=== PATIENT | female | born 1995 | race Caucasian/White ===

== ENCOUNTER 2018-10-17 14:56 | Inpatient (IN) | payer OTHER ==
[~2018-10-17] VITALS: Ht 157.5 cm; Wt 68.9 kg
[2018-10-17] VITALS (7 sets, daily range): BP systolic 108–118; BP diastolic 62–72
[2018-10-17 16:00] LABS: HEMATOCRIT 36.9 % (36.0-47.0); HEMOGLOBIN 11.9 g/dl (12.0-15.5); MEAN CORPUSCULAR HGB CONC 32.2 g/dl (32.0-36.5); MEAN CORPUSCULAR VOLUME 86.8 fl (80.0-96.0); PLATELET COUNT, AUTOMATED 272 10^3/uL (150-450); RED BLOOD COUNT 4.25 10^6/uL (4.00-5.40); WHITE BLOOD COUNT 8.9 10^3/uL (4.0-10.0)
[2018-10-17] MEDS ORDERED: miSOPROStol 50 MCG 1/2 TAB (S0191) PO ONE (16:00)
--- NOTE | 2018-10-17 16:18 | NUR ---
Obstetrical History & Physical Date of Admission Oct 17, 2018 at 20:06 History of Present Illness Mimi is a 23 y/o G1 at 41+0 weeks via LMP of 03 JAN 2018 and c/w TVUS at 8+2 weeks who presents to L&D for planned late term IOL. She denies any vaginal bleeding, ctx, or leakage of fluid. She endorses excellent movement. is uncomplicated. Chief Complaint: Planned late-term IOL Information Provided By: Patient Age: 23 : 1 Term: 0 Pre-term: 0 Abortions: 0 Livin Care Care: Good Care Dating Final EDC: October 10, 2018 Final EDC for Daily Update: October 10, 2018 Final EDC by: LMP (LMP 03 JAN 2018) LMP: Jan 03, 2018 1st Trimester Date: Mar 02, 2018 (8+2 week US on [id number] c/w LMP dating. 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 ABDOMEN: Gravid and non-tender to touch. FETUS: Is vertex (VTX) by sterile vaginal examination (SVE) EXTREMITIES: No edema. Laboratory Data Urine Culture: No Growth Pertinent Laboratoy Data Blood Type: A+ RBC Antibody Screen: Negative HIV: Negative Hepatitis B: Negative Hepatitis C: Unknown Rapid Plasma Reagin: Nonreactive Rubella: Immune Varicella: Non-Immune Chlamydia/Gonorrhea: Negative Group B Streptococcus: Negative Quad Screen Test: Negative Cystic Fibrosis: Unknown Glucose Tolerance Test: 87 Anatomy Ultrasound Placenta Location: Posterior Normal Anatomy: Yes, small venous lakes present Placenta Previa: No Vaginal Examination Dilation: FT Effacement: 20% Station: -4 Cervical Consistency: moderate Cervical Position: posterior Presentation: cephalic presentation via Jean Carlos's and SCE Position: vertex (occiput) Assessment Heart Rate (FHR): 140 Variability: Moderate Accelerations: Positive Decelerations: None Tocometer Contractions: irregular u/a Frequency: n/a Strength: n/a Assessment/Plan Assessment 23 yo G1 at 41+0 via L/1TUS admission for late-term IOL. Uncomplicated . RNST. GBS NEG. Plan Admit to L&D for IOL, will initiate with misoprostil for cervical ripening Apply IV fluids. GBS negative. Patient may epidural if desired. Anticipate .
--- NOTE | 2018-10-17 20:02 | IPNPDOC ---
Obstetrical Progress Note Date of Service Oct 17, 2018 Subjective Pt reports slight cramping with CTXNs. SVE unchanged FHT CAT1 [place] Q 2-3min Plan: Miso 50mcg PO x 1 now Objective Vital Signs Date Time Temp Pulse Resp B/P (MAP) Pulse Ox O2 Delivery O2 Flow Rate FiO2 10/17/18 19:14 97.4 94 116/66 (83) Assessment Heart Rate (FHR): 130 Variability: Moderate Accelerations: Positive Decelerations: None Heart Rate Tracing: Category I Tocometer Contractions: Yes Frequency: irregular, every 2-5 min. Strength: palpated as mild Sterile Vaginal Examination Dilation: Fingertip Effacement (%): 30% Station: Other (-4) Cervical Consistency: Firm Cervical Position: Posterior Postion/Presentation: Cephalic presentation Assessment and Plan Status: Reassuring RISHABH REBOLLEDO MD Oct 17, 2018 20:02
[2018-10-17] MEDS: miSOPROStol 50 MCG 1/2 TAB (S0191) PO SCH (20:16)
--- NOTE | 2018-10-17 23:59 | IPNPDOC ---
Obstetrical Progress Note Date of Service Oct 17, 2018 Subjective Pt reports CTXNs are getting stronger. Considering pain meds at this time. Objective Vital Signs Date Time Temp Pulse Resp B/P (MAP) Pulse Ox O2 Delivery O2 Flow Rate FiO2 10/17/18 22:34 93 108/62 (77) 10/17/18 19:14 97.4 Assessment Heart Rate (FHR): 130 Variability: Moderate Accelerations: Positive Decelerations: None Heart Rate Tracing: Category I Tocometer Contractions: Yes Frequency: irregular, every 2-5 min. Duration: less than 60 seconds Strength: palpated as mild Sterile Vaginal Examination Dilation: 1cm Effacement (%): 50% Station: -3 Cervical Consistency: Medium Cervical Position: Posterior Postion/Presentation: Cephalic presentation Assessment and Plan Status: Reassuring Anticipate: Vaginal Delivery Additional Comments Plan: Continue with current plan. Miso 50mcg PO #3 to be given RISHABH REBOLLEDO MD Oct 17, 2018 23:59
[2018-10-18] VITALS (32 sets, daily range): BP systolic 77–135; BP diastolic 52–92
[2018-10-18] MEDS ORDERED: ACETAMINOPHEN 325 MG TAB PO ONE
[2018-10-18] MEDS ORDERED: PROMETHAZINE INJ 25 MG/ML VIAL (J2550) IM ONE
[2018-10-18] MEDS ORDERED: BUTORPHANOL 2 MG/ML INJ (J0595) IV ONE
[2018-10-18] MEDS: miSOPROStol 50 MCG 1/2 TAB (S0191) PO SCH (00:15)
[2018-10-18] MEDS ORDERED: FENTANYL 2MCG/ML ROPIVACAINE 0.2% IN 0.9% NACL 100ML IVBAG As Ordered ONE (04:45)
[2018-10-18] MEDS ORDERED: EPIDURAL COMMENT XX SCH (05:30)
[2018-10-18] MEDS ORDERED: ONDANSETRON 4MG/2ML VIAL (J2405) IV PRN ×2 (05:30→23:57)
[2018-10-18] MEDS: FENTANYL/ROPIVACAINE/NACL BAG 100 ML EPIDURAL SCH ×2 (05:30→13:08)
[2018-10-18] MEDS ORDERED: LACTATED RINGER'S 1000 ML IV PRN (05:30)
[2018-10-18] MEDS ORDERED: EPIDURAL/PCA KEYS XX PRN (05:30)
[2018-10-18] MEDS ORDERED: REFRIGERATOR IV KEYS XX PRN (05:30)
[2018-10-18] MEDS ORDERED: NALOXONE INJ 0.4 MG/1 ML VIAL (J2310) IV PRN ×3 (05:30→23:57)
[2018-10-18] MEDS ORDERED: diphenhydrAMINE INJ 50MG/ML VIAL (J1200) IV PRN ×2 (05:30→23:57)
[2018-10-18] MEDS ORDERED: ePHEDrine SULFATE 25 MG/5 ML(5MG/ML) SYRINGE IV PRN (05:30)
--- NOTE | 2018-10-18 06:31 | IPNPDOC ---
Obstetrical Progress Note Date of Service Oct 18, 2018 Subjective Pt very uncomfortable and requested an epidural. She is now s/p epidural and very comfortable. Objective Vital Signs Date Time Temp Pulse Resp B/P (MAP) Pulse Ox O2 Delivery O2 Flow Rate FiO2 10/18/18 05:55 75 111/72 (85) 10/18/18 00:56 97.8 10/18/18 00:55 18 Assessment Heart Rate (FHR): 130 Variability: Moderate Accelerations: Positive Decelerations: None Heart Rate Tracing: Category I Tocometer Contractions: Yes Frequency: every 2-5 min. Duration: less than 60 seconds Strength: palpated as moderate Sterile Vaginal Examination Dilation: 3 cm Effacement (%): 80% Station: -3 Cervical Consistency: Medium Cervical Position: Anterior Assessment and Plan Anticipate: Vaginal Delivery Additional Comments Expectant management at this time. Plan for recheck and assess need for augmentation. RISHABH REBOLLEDO MD Oct 18, 2018 06:31
[2018-10-18] MEDS ORDERED: LR 1,000 ML IV SCH (10:57)
[2018-10-18] MEDS ORDERED: OXYTOCIN DRIP 30 UNITS in APPROPRIATE DILUENT 1 EA IV SCH (11:00)
--- NOTE | 2018-10-18 11:03 | IPNPDOC ---
Obstetrical Progress Note Date of Service Oct 18, 2018 Subjective 23yo at 41+1wks admitted on the 17 of October for PDIOL. Assumed care of this pt this AM. Pt now s/p epidural and comfortable and sleeping on and off. Pt has received 3x cytotec, last dose ~0100 this AM. VE at 0630 this am was 3/80/-3 by off-going OB provider. Pt denies any concerns at this time. Her spouse remains at the bedside. O: VSS, BP stable VE at 1050: 3.5/80/-3, midline, soft, head well applied Bloody show present FHR 130s, moderate variability, + accels, no decels CTX: irregular at 2-6minutes apart A: Early labor via IOL, Category I FHT, Stable P: CEFM x2 Monitor maternal/ status Start pitocin per protocol Consider AROM at next exam Consult with OB if indicated Anticipate Objective Vital Signs Date Time Temp Pulse Resp B/P (MAP) Pulse Ox O2 Delivery O2 Flow Rate FiO2 10/18/18 07:00 83 94/60 (71) 10/18/18 00:56 97.8 10/18/18 00:55 18 BASILIO MARADIAGA CNM Oct 18, 2018 11:03
--- NOTE | 2018-10-18 16:56 | IPNPDOC ---
Obstetrical Progress Note Date of Service Oct 18, 2018 Subjective 23yo at 41+1wks, continuing PDIOL, on pitocin at this time, comfortable with epidural in place. Pt has no concerns; spouse and mother of patient at bedside. O: VSS, afebrile VE at 1600: 6/80/-2, anterior, soft Bloody show present AROM with scant, clear fluid FHR 135, moderate variability, + no accels at time of note, early decels present CTX: q1.5-3 Pitocin running at 8mu/min, reduced to 4mu/min at time of AROM A: Active labor, Category I FHT, Stable P: CEFM x2 Monitor maternal/ status Continue pitocin titration per protocol Close monitor of maternal temp Consult with OB if indicated Anticipate Objective BASILIO MARADIAGA CNM Oct 18, 2018 16:56
--- NOTE | 2018-10-18 19:31 | IPNPDOC ---
Obstetrical Progress Note Date of Service Oct 18, 2018 Subjective 23yo at 41+1wks, IOL, on 4mu/min of pitocin at this time. Comfortable with epidural in place. O: VSS, afebrile VE at 1922: C/+1 Bloody show present, clear fluid on chux FHR 135, moderate variability, + accels, intermittent late and variable decelerations noted with ctx (RN has provided resuscitative interventions) CTX: q1.5-3 A: Active labor/Stage II, Category II FHT with ongoing interventions P: CEFM x2 Monitor maternal/ status Start pushing at this time Consult with OB if indicated Anticipate Objective BASILIO MARADIAGA CNM Oct 18, 2018 19:31
[2018-10-18] MEDS ORDERED: BICITRA 30ML SOLN UDC As Ordered ONE (23:14)
[2018-10-18] MEDS ORDERED: ceFAZolin 2 GM/D5W 50 ML IV BAG (J0690 PER 500MG) As Ordered ONE (23:14)
[2018-10-18] MEDS ORDERED: BICITRA 30ML SOLN UDC PO ONE (23:15)
[2018-10-18] MEDS ORDERED: AZITHROMYCIN INJ 500 MG, VIAL MATE ADAPTER 1 EACH in D5W 250 ML IV ONE (23:15)
[2018-10-18] MEDS ORDERED: KETOROLAC 60 MG/2 ML VIAL (J1885) As Ordered ONE (23:20)
[2018-10-18] MEDS ORDERED: ACETAMINOPHEN 1000MG 100ML IV BTL (OFIRMEV) (J0131 PER 10MG) As Ordered ONE (23:20)
[2018-10-18] MEDS ORDERED: fentaNYL 100 MCG/2 ML INJECTION (J3010) As Ordered ONE (23:20)
[2018-10-18] MEDS ORDERED: OXYTOCIN INJ 10 UNITS/ML VIAL (J2590) As Ordered ONE (23:20)
[2018-10-18] MEDS ORDERED: ONDANSETRON 4MG/2ML VIAL (J2405) As Ordered ONE (23:20)
[2018-10-18] MEDS ORDERED: AZITHROMYCIN INJ 500MG VIAL (J0456) As Ordered ONE (23:20)
[2018-10-18] MEDS ORDERED: MORPHINE PRES-FREE INJ 10 MG/10 ML VIAL (J2274) As Ordered ONE (23:21)
[2018-10-18] MEDS ORDERED: SODIUM BICARBONATE 8.4% INJ 50 ML SYRINGE As Ordered ONE (23:21)
--- NOTE | 2018-10-18 23:31 | NUR ---
L&D Note; - in to evaluate patient's pushing effect. She has been pushing for 3hrs without any further descent. C/C/+1. I discussed finding and offered 1LTCS for arrest of descent vs. further pushing. After discussion, patient desires to proceed with 1LTCS. Astrid Martinez MD
[2018-10-18] MEDS ORDERED: METOCLOPRAMIDE INJ 10MG/2ML VIAL (J2765) IV PRN (23:57)
[2018-10-18] MEDS ORDERED: NALBUPHINE HCL 10 MG/ML AMP (J2300) IV PRN (23:57)
[2018-10-19] VITALS (16 sets, daily range): BP systolic 97–121; BP diastolic 55–74
[2018-10-19] MEDS ORDERED: fentaNYL 100 MCG/2 ML INJECTION (J3010) As Ordered ONE (00:01)
[2018-10-19] MEDS ORDERED: dexameTHASONE 4 MG/ML 1ML VIAL (J1100) As Ordered ONE (00:10)
[2018-10-19] MEDS ORDERED: LIDOCAINE 2% W/EPIN INJ 20ML **PRES FREE As Ordered ONE (00:10)
[2018-10-19] MEDS ORDERED: METOCLOPRAMIDE INJ 10MG/2ML VIAL (J2765) As Ordered ONE (00:11)
[2018-10-19] MEDS: LR 1,000 ML IV SCH ×3 (00:34→19:33)
[2018-10-19] MEDS ORDERED: OXYTOCIN DRIP 30 UNITS in APPROPRIATE DILUENT 1 EA IV SCH (00:34)
[2018-10-19 00:43] LABS: CORD GAS ABE A -5.5; CORD GAS HCO3 A 20.7 MEQ/L; CORD GAS O2 SAT A 69.5 %; CORD GAS PH A 7.301 UNITS; CORD GAS PO2 A 33.2 mmHg; CORD GAS SBC A 19.3 MEQ/L; CORD GAS TCO2 A 22.1 MEQ/L
[2018-10-19] MEDS ORDERED: MEASLES,MUMPS,RUBELLA VACCINE INJ (MMR-II) (90707) SC SCH (00:45)
[2018-10-19] MEDS ORDERED: PROMETHAZINE 25 MG TAB PO PRN (00:45)
[2018-10-19] MEDS ORDERED: RHOGAM 300 MCG (1500 IU) INJ (J2790) IM SCH (00:45)
[2018-10-19] MEDS ORDERED: MOM 30ML SUSPENSION UDC PO PRN (00:45)
[2018-10-19 00:46] LABS: CORD GAS ABE V -6.4; CORD GAS HCO3 V 22.2 MEQ/L; CORD GAS O2 SAT V 54.2 %; CORD GAS PCO2 V 54.7 mmHg; CORD GAS PH V 7.226 UNITS; CORD GAS PO2 V 27.7 mmHg; CORD GAS SBC V 18.2 MEQ/L; CORD GAS TCO2 V 23.9 MEQ/L
[2018-10-19] MEDS ORDERED: fentaNYL 100 MCG/2 ML INJECTION (J3010) IV PRN (01:00)
[2018-10-19] MEDS ORDERED: ONDANSETRON 4MG/2ML VIAL (J2405) IV PRN (01:00)
[2018-10-19] MEDS ORDERED: LR 1,000 ML IV SCH (01:00)
[2018-10-19] MEDS: PERCOCET 5MG/325MG TAB PO PRN ×3 (02:41→20:08)
[2018-10-19] MEDS: KETOROLAC 30 MG/ML VIAL (J1885) IV SCH ×3 (06:02→19:26)
--- NOTE | 2018-10-19 07:55 | RO ---
DATE OF PROCEDURE: 10/18/2018 PREOPERATIVE DIAGNOSIS: Arrest of descent. POSTOPERATIVE DIAGNOSIS: Arrest of descent. PROCEDURE PERFORMED: Primary lower transverse section. SURGEON: Astrid Martinez MD OIL BURNER JOURNEYMAN: Guido Ford DO ANESTHESIA: Epidural. ESTIMATED BLOOD LOSS: 500 mL. INTRAVENOUS FLUIDS: 1 liter of lactated ringer solution. URINE OUTPUT: 400 mL. PREOPERATIVE ANTIBIOTICS: 2 grams Ancef, 500 mg of azithromycin. SPECIMENS: Cord blood and cord gases. OPERATIVE FINDINGS: Live born female , and weight are pending. DESCRIPTION OF OPERATION: After informed consent was obtained and written consent was reviewed, the patient was brought to the operating room where she was prepped and draped in normal sterile fashion. She had previously had a Anderson catheter and that was set to gravity. Time-out was performed in the operating room identifying the patient, procedure to be performed as well as drug allergies. Anesthesia was tested and deemed to be adequate. A Pfannenstiel skin incision was then made and this was carried down to the underlying rectus fascia. The fascia was scored and this incision was extended bilaterally. The fascia was then dissected off down lying rectus muscles both superiorly and inferiorly. Rectus muscles were in midline. The peritoneum was then entered. The vesicouterine peritoneum was then identified. It was then excised to create a bladder flap. The bladder blade was then placed to retract back the bladder. Curvilinear incision was then made in the lower uterine segment. This incision was extended. The head was then brought to the level of incision and delivered atraumatically along with shoulders and corpus. Cord was clamped times two and was cut and was taken over to the warmer. Cord blood and gases were obtained. Placenta was then delivered grossly intact. The uterus was then exteriorized, cleared of all clots and debris. Uterus was then closed using #0 Vicryl and two layers, first in a running locking fashion followed by second layer for imbrication in a running nonlocking fashion. The abdomen was then suctioned. The uterus was returned into the patient's abdomen. The surgical sites were inspected and noted to be hemostatic. The anterior peritoneum was then reapproximated with #3-0 Vicryl and the rectus muscles reapproximated with #3-0 Vicryl. The fascia was then closed with #0 Vicryl in a running nonlocking fashion. Subcutaneous tissue was then irrigated and suctioned. Subcutaneous tissue was reapproximated with #3-0 Vicryl. Several subdermal stitches were placed with #3-0 Vicryl and the skin was closed with #4-0 Monocryl in subcuticular fashion. Incision was then cleaned and dried and was dressed. The patient was then taken to recovery in stable condition. Counts were correct. The couple has decided to name their daughter Juana. Dr. Ford, my surgical physician assistant, played an essential role throughout the surgery. He assisted with tissue identification, retraction, delivery of the as well as wound closure.
[2018-10-19] MEDS: PRENATAL VITAMINS CHEWABLE TABLET PO SCH (08:36)
[2018-10-19] MEDS: DOCUSATE SODIUM 100 MG CAP PO SCH ×2 (08:36→20:06)
[2018-10-20] MEDS: IBUPROFEN 800 MG TAB PO SCH ×3 (02:15→18:41)
[2018-10-20 02:30] VITALS: BP 106/56
[2018-10-20 06:45] VITALS: BP 108/64
[2018-10-20 06:57] LABS: HEMATOCRIT 31.8 % (36.0-47.0); HEMOGLOBIN 10.2 g/dl (12.0-15.5); MEAN CORPUSCULAR HGB CONC 32.1 g/dl (32.0-36.5); MEAN CORPUSCULAR VOLUME 87.4 fl (80.0-96.0); PLATELET COUNT, AUTOMATED 203 10^3/uL (150-450); RED BLOOD COUNT 3.64 10^6/uL (4.00-5.40); WHITE BLOOD COUNT 16.7 10^3/uL (4.0-10.0)
--- NOTE | 2018-10-20 08:21 | IPNPDOC ---
Progress Note Date of Service: Oct 20, 2018 Progress Note Mimi is a 23 yo G1 now P1 who is POD#2 s/p an uncomplicated PLTCS late at night on [id number] for arrest of descent. She is recovering on the maldonado. No acute events overnight. Ms. Ogden reports feeling well this morning. She is ambulating, tolerating a regular diet, and has minimal pain and minimal lochia. Her turk catheter has been removed and she is voiding without issues. She denies any fevers/chills, SOB, chest pain, n/v, or pain not relieved by PO medications. Vitals - VSS, afebrile, normotensive, non tachycardic General - AAOX3, sitting up in bed , NAD Abdomen - Fundus firm at U-2. No fundal tenderness. Optifoam dressing in place and well appearing. No tenderness to palpation. Extremities - No edema UO - Excellent Labs: Post op CBC stable Ms. Ogden is doing well and is making an appropriate post op / recovery. Encourage ambulation, , and IS use. Continue routine post op care. Anticipate discharge home tomorrow. All patient questions answered. Dez Smith DO VS, I&O, 24H, Fishbone Vital Signs/I&O Vital Signs Date Time Temp Pulse Resp B/P (MAP) Pulse Ox O2 Delivery O2 Flow Rate FiO2 10/20/18 06:45 98.2 104 16 108/64 (79) 10/20/18 02:30 98 I&O- Last 24 Hours up to 6 AM 10/20/18 06:00 Intake Total 1705 ml Output Total 1075 ml Balance 630 ml Laboratory Data 24H LABS Laboratory Tests 2 10/20/18 06:16: Nucleated Red Blood Cells % (auto) 0.0 CBC/BMP Laboratory Tests 10/20/18 06:16 Red Blood Count 3.64 L, Mean Corpuscular Volume 87.4, Mean Corpuscular Hemoglobin 28.0, Mean Corpuscular Hemoglobin Concent 32.1, Red Cell Distribution Width 15.4 H DEZ SMITH DO Oct 20, 2018 08:20
[2018-10-20] MEDS: PRENATAL VITAMINS CHEWABLE TABLET PO SCH (08:49)
[2018-10-20] MEDS: DOCUSATE SODIUM 100 MG CAP PO SCH ×2 (08:49→21:43)
[2018-10-20 10:04] VITALS: BP 106/61
[2018-10-20 14:00] VITALS: BP 104/55
[2018-10-20] MEDS: PERCOCET 5MG/325MG TAB PO PRN ×2 (17:12→21:44)
[2018-10-20 18:09] VITALS: BP 113/74
[2018-10-20 22:00] VITALS: BP 109/69
[2018-10-21 02:00] VITALS: BP 113/76
[2018-10-21] MEDS: IBUPROFEN 800 MG TAB PO SCH ×2 (02:45→10:27)
[2018-10-21 06:00] VITALS: BP 106/70
[2018-10-21] MEDS ORDERED: PERCOCET PO (09:23)
[2018-10-21] MEDS ORDERED: IBUP80TA PO (09:23)
--- NOTE | 2018-10-21 09:25 | DS.PDOC ---
Discharge Summary General Date of Admission Oct 17, 2018 at 14:56 Date of Discharge October 21, 2018 Discharge Summary HOSPITAL COURSE: Ms. Ogden is a 23 yo G1 now P1 who underwent an uncomplicated PLTCS late at night on 18Oct2018 for arrest of descent after being admitted for an IOL for late term . Her course has been unremarkable. On her day of discharge she met all appropriate discharge criteria. She was ambulating, voiding, tolerating a regular diet, had minimal lochia, and her pain was well controlled with PO pain medications. DISCHARGE MEDICATIONS: Please see below. ALLERGIES: Please see below. PHYSICAL EXAMINATION ON DISCHARGE: VITAL SIGNS: Please see below. GENERAL: AAOX3, laying in bed, NAD, pleasant and conversant ABDOMINAL EXAMINATION: Abdomen soft, nondistended. No tenderness to palpation. Fundus firm at U-2. No fundal tenderness. Incision well appearing and steri strips still in place. Incision clean/dry/intact. EXTREMITIES: No edema PSYCHIATRIC EXAMINATION: Affect appropriate LABORATORY DATA: Please see below. ACTIVITY: Pelvic rest for 6 weeks. No heavy lifting for 6 weeks DIET: Regular DISCHARGE PLAN: Discharge home DISPOSITION: Discharge home on 21Oct2018 DISCHARGE INSTRUCTIONS: 1. Pelvic rest for 6weeks 2. No heavy lifting for 6 weeks ITEMS TO FOLLOWUP ON ON OUTPATIENT: 1. 2 week incision check DISCHARGE CONDITION: Stable TIME SPENT ON DISCHARGE: Greater than 20 minutes. Dez Ramirez DO Vital Signs/I&Os Vital Signs Date Time Temp Pulse Resp B/P (MAP) Pulse Ox O2 Delivery O2 Flow Rate FiO2 10/21/18 06:00 98.4 80 18 106/70 (82) 98 Discharge Medications Scheduled Ibuprofen (Ibuprofen) 800 Mg Tablet, 800 MG PO Q8H Scheduled PRN Oxycodone/Acetaminophen (Oxycodone-Acetaminophen 5-325) 1 Each Tablet, 1 TAB PO Q4HP PRN for MILD PAIN (PS 1-4) Oxycodone/Acetaminophen (Oxycodone-Acetaminophen 5-325) 1 Each Tablet, 2 TAB PO Q4HP PRN for MODERATE/SEVERE PAIN (PS 5-10) Allergies Coded Allergies: No Known Allergies (Unverified , 10/17/18) DEZ RAMIREZ DO Oct 21, 2018 09:25
[2018-10-21] MEDS: PRENATAL VITAMINS CHEWABLE TABLET PO SCH (09:26)
[2018-10-21] MEDS: DOCUSATE SODIUM 100 MG CAP PO SCH (09:26)
== END 2018-10-21 12:30 | disposition home or self-care (01) | DRG 773 ==
LOC: M LDI 14:56 → M OBS 10-19 02:10
PROVIDERS: ADMIT Advanced Practice Midwife; ATTEND Obstetrics & Gynecology
PROC: 3E0P7GC Introduction of Other Therapeutic Substance into Female Reproductive, Via Natural or Artificial Opening (ICD-10-PCS; 2018-10-17)
PROC: 10D00Z1 Extraction of Products of Conception, Low, Open Approach (ICD-10-PCS; principal; 2018-10-18 23:36)
DX: O48.0 Post-term pregnancy (principal); Z3A.41 41 weeks gestation of pregnancy; O64.0XX0 Obstructed labor due to incomplete rotation of fetal head, not applicable or unspecified; Z37.0 Single live birth

== ENCOUNTER 2018-10-25 18:56 | Emergency (ER) | payer OTHER ==
[~2018-10-25] VITALS: Ht 157.5 cm; Wt 63.6 kg
[~2018-10-25 18:56] MED LIST: IBUP80TA PO; PERCOCET PO
[2018-10-25 19:36] LABS: BASO # 0.1 10^3/uL (0.0-0.2); BASO % 0.5 % (0.0-1.0); EOS # 0.6 10^3/uL (0.0-0.50); EOS % 5.6 % (0.0-3.0); HEMATOCRIT 40.9 % (36.0-47.0); HEMOGLOBIN 13.2 g/dl (12.0-15.5); LYMPH # 3.7 10^3/uL (1.5-6.5); LYMPH % 33.7 % (24.0-44.0); MEAN CORPUSCULAR HEMOGLOBIN 27.9 pg (27.0-33.0); MEAN CORPUSCULAR HGB CONC 32.3 g/dl (32.0-36.5); MEAN CORPUSCULAR VOLUME 86.5 fl (80.0-96.0); MONO # 0.6 10^3/uL (0.0-0.8); MONO % 5.7 % (0.0-5.0); NEUTROPHILS # 5.9 10^3/uL (1.8-7.7); NEUTROPHILS % 53.4 % (36.0-66.0); PLATELET COUNT, AUTOMATED 349 10^3/uL (150-450); RED BLOOD COUNT 4.73 10^6/uL (4.00-5.40)
[2018-10-25] MEDS ORDERED: KETOROLAC 30 MG/ML VIAL (J1885) IV ONE (19:45)
[2018-10-25] MEDS ORDERED: NS 1,000 ML IV ONE (19:45)
[2018-10-25 19:56] LABS: ALBUMIN 2.9 GM/DL (3.2-5.2); ALT/SGPT 46 U/L (12-78); BILIRUBIN,DIRECT 0.1 MG/DL (0.0-0.2); BILIRUBIN,TOTAL 0.3 MG/DL (0.2-1.0); BLOOD UREA NITROGEN 11 MG/DL (7-18); CALCIUM LEVEL 9.4 MG/DL (8.5-10.1); CARBON DIOXIDE LEVEL 28 MEQ/L (21-32); CHLORIDE LEVEL 107 MEQ/L (98-107); CREATININE FOR GFR 0.71 MG/DL (0.55-1.30); GLOMERULAR FILTRATION RATE > 60.0 (>60); GLUCOSE, FASTING 77 MG/DL (70-100); LIPASE 169 U/L (73-393); SODIUM LEVEL 142 MEQ/L (136-145); TOTAL PROTEIN 6.8 GM/DL (6.4-8.2)
[2018-10-25] MEDS ORDERED: ISOVUE-370 76% 100ML VIAL (Q9967) As Ordered ONE (20:22)
--- NOTE | 2018-10-25 21:28 | REPVR ---
EXAM: US Pelvis Complete, Transabdominal EXAM DATE/TIME: 10/25/2018 8:15 PM CLINICAL HISTORY: 23 years old, female; Pelvic pain; Prior surgery; Surgery date: 3-7 days post-operative; Surgery type: C section; Additional info: Pain following c section TECHNIQUE: Imaging protocol: Real-time transabdominal pelvic ultrasound with image documentation. Complete exam. COMPARISON: No relevant prior studies available. FINDINGS: Uterus/cervix: The uterus measures 18.2 cm in its cephalocaudad dimension and 5.6 x 12.1 cm in its AP and lateral dimensions. Mildly prominent and heterogeneous endometrium which is not specifically measured, particularly in the lower uterine segment. Right adnexa: The right ovary measures 2.7 x 3.1 x 1.9 cm and demonstrates blood flow. Left adnexa: The left ovary measures 3.4 x 2.8 x 1.8 cm and demonstrates blood flow. There is a hyperechoic nodule measuring 1.2 x 1.3 x 0.9 cm consistent with small dermoid. There is a structure inferior and lateral to the left ovary measuring 2.4 x 1.9 x 3.1 cm with low attenuation centrally. Free fluid: No fluid collection is noted in the incision site. Bladder: Normal. IMPRESSION: 1. Enlarged uterus consistent with state. The endometrium appears prominent and heterogeneous, particularly in the lower uterine segment which may reflect blood or possibly retained products of conception. 2. Small left ovarian dermoid measuring 1.2 x 1.3 x 0.9 cm. 3. Complex structure inferior and lateral to left ovary of uncertain etiology measuring 2.4 x 1.9 x 3.1 cm. 4. No abnormality is identified within the incision. Electronically signed by: Aba Culver On 10/25/2018 21:27:50 PM
--- NOTE | 2018-10-25 21:30 | REPVR ---
EXAM: CT Angiography Chest With Contrast EXAM DATE/TIME: 10/25/2018 8:26 PM CLINICAL HISTORY: 23 years old, female; Shortness of breath; Additional info: Shortness of breath following c section TECHNIQUE: Imaging protocol: Axial computed tomographic angiography images of the chest with intravenous contrast using CT angiography protocol. Coronal and sagittal reformatted images were created and reviewed. 3D rendering: MIP reconstructed images were created and reviewed. Radiation optimization: All CT scans at this facility use at least one of these dose optimization techniques: automated exposure control; mA and/or kV adjustment per patient size (includes targeted exams where dose is matched to clinical indication); or iterative reconstruction. Contrast material: ISOVUE 370;Contrast volume: 100 ml;Contrast route: IV; COMPARISON: No relevant prior studies available. FINDINGS: Pulmonary arteries: The main pulmonary artery measures 25 mm. No pulmonary embolism is identified. Aorta: The ascending thoracic aorta measures 28 mm. Lungs: Unremarkable. No consolidation. No masses. Pleural space: Unremarkable. No pneumothorax. No pleural effusion. Heart: Unremarkable. No cardiomegaly. No pericardial effusion. Lymph nodes: Unremarkable. No enlarged lymph nodes. Bones/joints: Unremarkable. No acute fracture. Soft tissues: Unremarkable. IMPRESSION: Negative CTA chest. No pulmonary embolism is identified. Electronically signed by: Aba Culver On 10/25/2018 21:30:25 PM
--- NOTE | 2018-10-25 21:43 | REPVR ---
EXAM: CT Abdomen and Pelvis With Contrast EXAM DATE/TIME: 10/25/2018 8:26 PM CLINICAL HISTORY: 23 years old, female; Abdominal pain; Localized; Left lower quadrant (llq); Prior surgery; Surgery date: 3-7 days post-operative; Surgery type: ; Additional info: Llq pain, ruq pain following c section TECHNIQUE: Imaging protocol: Axial computed tomography images of the abdomen and pelvis with intravenous contrast. Coronal and sagittal reformatted images were created and reviewed. Radiation optimization: All CT scans at this facility use at least one of these dose optimization techniques: automated exposure control; mA and/or kV adjustment per patient size (includes targeted exams where dose is matched to clinical indication); or iterative reconstruction. Contrast material: ISOVUE 370;Contrast volume: 100 ml;Contrast route: IV; COMPARISON: US PELVIC NON-OB COMPLETE 10/25/2018 7:52 PM FINDINGS: Liver: Normal. No mass. Gallbladder and bile ducts: Normal. No calcified stones. No ductal dilation. Pancreas: Normal. No ductal dilation. Spleen: Normal. No splenomegaly. Adrenals: Normal. No mass. Kidneys and ureters: Normal. No hydronephrosis. Stomach and bowel: Normal. No obstruction. No mucosal thickening. Appendix: Probable normal retrocecal appendix. Intraperitoneal space: Normal. No free air. No significant fluid collection. Vasculature: Normal. No abdominal aortic aneurysm. Lymph nodes: Normal. No enlarged lymph nodes. Bladder: Unremarkable as visualized. Reproductive: Large uterus. There is a left adnexal hyperdense nodule measuring 1.3 x 1.1 x 0.9 cm which is nonspecific without a delayed image but is suggestive of a pseudoaneurysm. Vague areas of ill-defined hyperenhancement in the adnexal regions bilaterally which reflect the ovaries which are otherwise not well-defined. Bones/joints: No acute fracture. No dislocation. Soft tissues: Residua of a low transverse pelvic incision with minimal gas at the right aspect and minimal gas in the anterior abdominal wall consistent with recent surgery. IMPRESSION: 1. Large gravid uterus. 2. Small rounded focus of high attenuation in the left adnexa measuring 1.3 x 1.1 x 0.9 cm which is of uncertain etiology but is suggestive for IV contrast material and may reflect a pseudoaneurysm although a delayed image would be of benefit for confirmation. No hypervascular structure is noted in this area on ultrasound, however. 3. Low transverse pelvic incision which appears normal. Minimal gas is noted in the abdominal wall which is consistent with recent surgery. Electronically signed by: Aba Culver On 10/25/2018 21:43:25 PM
[2018-10-25 23:25] VITALS: BP 125/93
--- NOTE | 2018-10-26 00:49 | REP ---
Clinical: Abdominal pain. Rule out perforation. Technique: Single supine view of the abdomen and pelvis. Findings: Bowel gas pattern is nonspecific. No evidence for free air or bowel obstruction. No organomegaly. No abnormal calcifications. Skeletal structures are intact. Impression: Nonspecific bowel gas pattern. Electronically Signed by Amol Matta MD 10/26/2018 12:41 A
== END 2018-10-25 23:28 | disposition home or self-care (01) ==
LOC: M ED 18:56
DX: O90.89 Other complications of the puerperium, not elsewhere classified (principal); R10.11 Right upper quadrant pain; G89.18 Other acute postprocedural pain; R06.02 Shortness of breath
CPT/HCPCS: 71275; 74018; 74177; 76856; 80048; 80076; 81001; 83690; 85025; 85379; 87086; 93976; 96361; 96374; 99284; J1885; Q9967